=== PATIENT | male | born 1960 | race Caucasian/White ===

== ENCOUNTER 2017-12-14 20:19 | Emergency (ER) | payer OTHER ==
[~2017-12-14] VITALS: Ht 190.5 cm; Wt 124.6 kg
[2017-12-14] MEDS ORDERED: NORCO 5/3251 TABLET PO (21:31)
[2017-12-14] MEDS ORDERED: NAPROSYN500 MG PO (21:31)
[2017-12-14 21:49] VITALS: BP 133/70
== END 2017-12-14 21:49 | disposition home or self-care (01) ==
LOC: EME → EDBD 20:19 → EME 21:49
DX: S83.91XA Sprain of unspecified site of right knee, initial encounter (principal); W17.89XA Other fall from one level to another, initial encounter; Y93.H2 Activity, gardening and landscaping; Y92.096 Garden or yard of other non-institutional residence as the place of occurrence of the external cause
CPT/HCPCS: 73564; 99281; 99284